=== PATIENT | female | born 1995 | race Hispanic/Latino ===

== ENCOUNTER 2017-08-10 19:53 | Emergency (ER) | payer MEDICAID, OTHER ==
[~2017-08-10 19:53] MED LIST: PREN1TAB80 PO
[2017-08-10 20:27] LABS: APPEARANCE,URINE Clear (CLEAR); BILIRUBIN,URINE Negative (NEGATIVE); COLOR,URINE Yellow (YELLOW); GLUCOSE, URINE (UA) Negative (NEGATIVE); KETONES,URINE Negative (NEGATIVE); LEUKOCYTE ESTERASE ,URINE Negative (NEGATIVE); NITRATE,URINE Negative (NEGATIVE); OCCULT BLOOD,URINE Negative (NEGATIVE); PH,URINE 8.5 (5.0-8.0); PROTEIN,URINE Negative (NEGATIVE)
[2017-08-10 20:30] LABS: HCG,QUAL RESULT NEGATIVE (NEGATIVE)
[2017-08-10] MEDS ORDERED: KETOROLAC TROMETHAMINE 30MG/ML ONE (20:51)
[2017-08-10] MEDS ORDERED: DEXAMETHASONE SOD PHOSPHATE 10MG/ML 1ML VIAL ONE (20:51)
== END 2017-08-10 21:17 | disposition home or self-care (01) ==
LOC: EDH 19:53
DX: J02.9 Acute pharyngitis, unspecified (principal); R51 Headache; M79.1 Myalgia; J45.909 Unspecified asthma, uncomplicated; Z91.013 Allergy to seafood
CPT/HCPCS: 81003; 81025; 87880; 96372 ×2; 99284; J1100; J1885

== ENCOUNTER 2018-09-17 21:21 | Emergency (ER) | payer OTHER ==
[2018-09-17] MEDS ORDERED: SODIUM CHLORIDE 0.9% 1000ML 1,000 ML IV ONE (23:32)
[2018-09-17] MEDS ORDERED: DEXAMETHASONE SOD PHOSPHATE 10MG/ML 1ML VIAL ONE (23:32)
[2018-09-17] MEDS ORDERED: DIPHENHYDRAMINE HCL 25 MG CAPSULE ONE (23:33)
[2018-09-17] MEDS ORDERED: PROCHLORPERAZINE EDISYLATE 10 MG/2 ML VIAL ONE (23:33)
[2018-09-17] MEDS ORDERED: DiphenhydrAMINE HCL 25 MG/10 ML ELIXIR UDCUP ONE (23:36)
[2018-09-17 23:42] LABS: BASOPHILS % (AUTO) 0.4 % (0.0-5.0); EOSINOPHILS % (AUTO) 1.5 % (0.0-8.0); HEMATOCRIT 33.7 % (36-48); LYMPHOCYTES % (AUTO) 33.8 % (21.0-51.0); MEAN CORPUSCULAR HEMOGLOBIN 23.4 pg (27.0-33.0); MEAN CORPUSCULAR HGB CONC 31.5 g/dL (32.0-36.0); MEAN CORPUSCULAR VOLUME 74.3 fL (79-99); MONOCYTES % (AUTO) 7.6 % (3.0-13.0); NEUTROPHILS % (AUTO) 56.7 % (40.0-77.0); PLATELET COUNT (AUTO) 242 K/uL (130-400); RED BLOOD CELL COUNT(AUTO) 4.53 MIL/uL (4.00-5.50); RED CELL DISTRIBUTION WIDTH 15.8 % (11.0-15.5); WHITE BLOOD COUNT (AUTO) 8.1 K/uL (4.8-10.8)
[2018-09-17 23:44] LABS: APPEARANCE,URINE Clear (CLEAR); BILIRUBIN,URINE Negative (NEGATIVE); COLOR,URINE Yellow (YELLOW); GLUCOSE, URINE (UA) Negative (NEGATIVE); KETONES,URINE Negative (NEGATIVE); LEUKOCYTE ESTERASE ,URINE Negative (NEGATIVE); NITRATE,URINE Negative (NEGATIVE); OCCULT BLOOD,URINE Negative (NEGATIVE); PROTEIN,URINE Negative (NEGATIVE); UROBILINOGEN,URINE 0.2 mg/dL (0.2-1.0)
[2018-09-17 23:45] LABS: HCG,QUAL RESULT NEGATIVE (NEGATIVE)
[2018-09-17 23:50] LABS: CREATININE 0.6 mg/dL (0.5-1.5); POTASSIUM 3.7 mmol/L (3.5-5.1)
[2018-09-17 23:57] LABS: ALBUMIN 4.1 g/dL (3.5-5.0); BILIRUBIN,TOTAL 0.3 mg/dL (0.2-1.0); TOTAL PROTEIN, SERUM 7.6 g/dL (6.0-8.3)
== END 2018-09-18 00:40 | disposition home or self-care (01) ==
LOC: EDH 21:21
DX: R51 Headache (principal); H57.13 Ocular pain, bilateral; R42 Dizziness and giddiness; J45.909 Unspecified asthma, uncomplicated; Z91.013 Allergy to seafood
CPT/HCPCS: 36415; 80053; 81003; 81025; 85025; 96361; 96374; 96375; 99284; J0780; J1100; J7030; Q0163

== ENCOUNTER 2018-12-24 13:11 | Emergency (ER) | payer SELFPAY ==
[2018-12-24] MEDS ORDERED: CYCLOBENZAPRINE HCL 10 MG TABLET ONE (13:41)
[2018-12-24] MEDS ORDERED: LIDOCAINE 5% TOPICAL PATCH TP ONE (13:41)
[2018-12-24] MEDS ORDERED: ACETAMINOPHEN EXTRA STRENGTH 500 MG TABLET ONE (13:41)
[2018-12-24 14:00] LABS: APPEARANCE,URINE Clear (CLEAR); BASOPHILS % (AUTO) 0.4 % (0.0-5.0); BILIRUBIN,URINE Negative (NEGATIVE); COLOR,URINE Yellow (YELLOW); EOSINOPHILS % (AUTO) 1.5 % (0.0-8.0); GLUCOSE, URINE (UA) Negative (NEGATIVE); HEMATOCRIT 37.5 % (36-48); KETONES,URINE Negative (NEGATIVE); LEUKOCYTE ESTERASE ,URINE Negative (NEGATIVE); LYMPHOCYTES % (AUTO) 33.9 % (21.0-51.0); MEAN CORPUSCULAR HEMOGLOBIN 26.2 pg (27.0-33.0); MEAN CORPUSCULAR HGB CONC 33.5 g/dL (32.0-36.0); MEAN CORPUSCULAR VOLUME 78.3 fL (79-99); MONOCYTES % (AUTO) 9.3 % (3.0-13.0); NEUTROPHILS % (AUTO) 54.9 % (40.0-77.0); NITRATE,URINE Negative (NEGATIVE); NUCLEATED RED BLOOD CELLS 0.1 % (0.0-0.19); OCCULT BLOOD,URINE Negative (NEGATIVE); PH,URINE 6.5 (5.0-8.0); PLATELET COUNT (AUTO) 220 K/uL (130-400); PROTEIN,URINE Negative (NEGATIVE); RED BLOOD CELL COUNT(AUTO) 4.79 MIL/uL (4.00-5.50); RED CELL DISTRIBUTION WIDTH 16.4 % (11.0-15.5); WHITE BLOOD COUNT (AUTO) 6.1 K/uL (4.8-10.8)
[2018-12-24 14:02] LABS: HCG,QUAL RESULT NEGATIVE (NEGATIVE)
[2018-12-24 14:11] LABS: CREATININE 0.7 mg/dL (0.5-1.5); POTASSIUM 3.4 mmol/L (3.5-5.1)
[2018-12-24 14:17] LABS: BILIRUBIN,TOTAL 0.5 mg/dL (0.2-1.0); TOTAL PROTEIN, SERUM 7.4 g/dL (6.0-8.3)
== END 2018-12-24 14:52 | disposition home or self-care (01) ==
LOC: EDH 13:11
DX: M62.838 Other muscle spasm (principal); M54.2 Cervicalgia; R55 Syncope and collapse; J45.909 Unspecified asthma, uncomplicated; G43.909 Migraine, unspecified, not intractable, without status migrainosus; Z91.013 Allergy to seafood
CPT/HCPCS: 36415; 80053; 81003; 81025; 85025; 93005

== ENCOUNTER 2019-05-20 23:31 | Observation (INO) | payer MEDICAID ==
[2019-05-20] MEDS ORDERED: LACTATED RINGERS 1000ML 1,000 ML IV PRN (23:44)
[2019-05-21 00:12] LABS: APPEARANCE,URINE Clear (CLEAR); BILIRUBIN,URINE Negative (NEGATIVE); COLOR,URINE Yellow (YELLOW); GLUCOSE, URINE (UA) Negative (NEGATIVE); KETONES,URINE Negative (NEGATIVE); LEUKOCYTE ESTERASE ,URINE Negative (NEGATIVE); NITRATE,URINE Negative (NEGATIVE); OCCULT BLOOD,URINE Negative (NEGATIVE); PROTEIN,URINE Negative (NEGATIVE); UROBILINOGEN,URINE 0.2 mg/dL (0.2-1.0)
[2019-05-21] MEDS ORDERED: ACETAMINOPHEN-CODEINE 300/30MG TAB PO STA (01:33)
[2019-05-21 02:29] LABS: AMPHET/METH SCREEN,URINE NEGATIVE (NEGATIVE); BARBITURATE SCREEN, URINE NEGATIVE (NEGATIVE); BENZODIAZEPINES SCREEN,URINE NEGATIVE (NEGATIVE); CANNABINOID SCREEN,URINE NEGATIVE (NEGATIVE); COCAINE SCREEN,URINE NEGATIVE (NEGATIVE); OPIATE SCREEN,URINE NEGATIVE (NEGATIVE); PHENCYCLIDINE SCREEN,URINE NEGATIVE (NEGATIVE)
== END 2019-05-21 01:00 | disposition home or self-care (01) ==
LOC: EDH 23:31 → LDH 23:52
PROVIDERS: ADMIT Obstetrics & Gynecology; ATTEND Obstetrics & Gynecology
DX: O99.89 Other specified diseases and conditions complicating pregnancy, childbirth and the puerperium (principal); M54.5 Low back pain; O99.512 Diseases of the respiratory system complicating pregnancy, second trimester; O99.353 Diseases of the nervous system complicating pregnancy, third trimester; J45.909 Unspecified asthma, uncomplicated; G43.909 Migraine, unspecified, not intractable, without status migrainosus; Z91.013 Allergy to seafood; Z3A.21 21 weeks gestation of pregnancy
CPT/HCPCS: 80305; 81003; 99284; G0378

== ENCOUNTER 2019-07-13 20:17 | Observation (INO) | payer MEDICAID ==
[~2019-07-13] VITALS: Ht 160 cm; Wt 59.0 kg
[2019-07-13 20:37] VITALS: BP 117/61
[2019-07-13 21:18] LABS: APPEARANCE,URINE Clear (CLEAR); BILIRUBIN,URINE Negative (NEGATIVE); COLOR,URINE Yellow (YELLOW); GLUCOSE, URINE (UA) Negative (NEGATIVE); KETONES,URINE Negative (NEGATIVE); LEUKOCYTE ESTERASE ,URINE Negative (NEGATIVE); NITRATE,URINE Negative (NEGATIVE); OCCULT BLOOD,URINE Negative (NEGATIVE); PH,URINE 7.5 (5.0-8.0); PROTEIN,URINE Negative (NEGATIVE)
[2019-07-13 21:27] LABS: AMPHET/METH SCREEN,URINE NEGATIVE (NEGATIVE); BARBITURATE SCREEN, URINE NEGATIVE (NEGATIVE); BENZODIAZEPINES SCREEN,URINE NEGATIVE (NEGATIVE); CANNABINOID SCREEN,URINE NEGATIVE (NEGATIVE); COCAINE SCREEN,URINE NEGATIVE (NEGATIVE); OPIATE SCREEN,URINE NEGATIVE (NEGATIVE); PHENCYCLIDINE SCREEN,URINE NEGATIVE (NEGATIVE)
== END 2019-07-13 22:05 | disposition home or self-care (01) ==
LOC: EDH 20:17 → LDH 20:18
PROVIDERS: ADMIT Obstetrics & Gynecology; ATTEND Obstetrics & Gynecology
DX: O26.893 Other specified pregnancy related conditions, third trimester (principal); O99.513 Diseases of the respiratory system complicating pregnancy, third trimester; J45.909 Unspecified asthma, uncomplicated; G43.909 Migraine, unspecified, not intractable, without status migrainosus; R10.2 Pelvic and perineal pain; Z88.5 Allergy status to narcotic agent; Z91.013 Allergy to seafood; Z3A.29 29 weeks gestation of pregnancy
CPT/HCPCS: 80305; 81003; 99284; G0378 ×2

== ENCOUNTER 2020-05-03 06:05 | Day surgery (SDC) | payer MEDICAID ==
[2020-04-30 13:49] LABS: BASOPHILS % (AUTO) 0.8 % (0.0-5.0); EOSINOPHILS % (AUTO) 3.2 % (0.0-8.0); HEMATOCRIT 38.9 % (36-48); LYMPHOCYTES % (AUTO) 36.9 % (21.0-51.0); MEAN CORPUSCULAR HEMOGLOBIN 25.8 pg (27.0-33.0); MEAN CORPUSCULAR HGB CONC 31.6 g/dL (32.0-36.0); MEAN CORPUSCULAR VOLUME 81.6 fL (79-99); MONOCYTES % (AUTO) 7.6 % (3.0-13.0); NEUTROPHILS % (AUTO) 51.3 % (40.0-77.0); PLATELET COUNT (AUTO) 240 K/uL (130-400); RED BLOOD CELL COUNT(AUTO) 4.77 MIL/uL (4.00-5.50); RED CELL DISTRIBUTION WIDTH 14.5 % (11.0-15.5)
[2020-05-02 09:45] VITALS: BP 119/64
[2020-05-03] VITALS (17 sets, daily range): BP systolic 103–126; BP diastolic 49–79
[~2020-05-03] VITALS: Ht 162.6 cm; Wt 53.3 kg
[~2020-05-03 06:05] MED LIST changes: +CEFAZOLIN SODIUM 1 GM VIAL IVP SCH; -PREN1TAB80 PO
[2020-05-03] MEDS ORDERED: LACTATED RINGERS 1000ML 1,000 ML IV ONE (06:27)
[2020-05-03] MEDS ORDERED: BUPIVACAINE/PF 0.25% 30ML VIAL IJ ONE (06:52)
[2020-05-03] MEDS ORDERED: SUCCINYLCHOLINE CHLORIDE 20 MG/ML 10 ML VIAL ONE ×2 (07:24→07:25)
[2020-05-03] MEDS ORDERED: PROPOFOL 10 MG/ML 20ML VIAL IV ONE (07:24)
[2020-05-03] MEDS ORDERED: DEXAMETHASONE SOD PHOSPHATE 10MG/ML 1ML VIAL ONE (07:24)
[2020-05-03] MEDS ORDERED: NEOSTIGMINE 5MG/5ML SYR IV ONE (07:24)
[2020-05-03] MEDS ORDERED: ROCURONIUM 10MG/1ML SYR 10 MG/ML ML ONE (07:24)
[2020-05-03] MEDS ORDERED: LIDOCAINE PF 2% 5ML ABBOJECT ONE (07:24)
[2020-05-03] MEDS ORDERED: ONDANSETRON HCL 4 MG/2 ML VIAL ONE (07:24)
[2020-05-03] MEDS ORDERED: MIDAZOLAM HCL 1 MG/ML 2ML VIAL ONE (07:24)
[2020-05-03] MEDS ORDERED: GLYCOPYRROLATE 1 MG/5 ML SYRINGE ONE (07:24)
[2020-05-03] MEDS ORDERED: FENTANYL CITRATE PF 50 MCG/1 ML 2ML VIAL ONE (07:25)
[2020-05-03] MEDS ORDERED: MEPERIDINE-PF 25 MG/ML SYG ONE ×2 (10:20→10:29)
== END 2020-05-03 11:35 | disposition home or self-care (01) ==
LOC: DAH 06:05
PROVIDERS: ATTEND Obstetrics & Gynecology
DX: Z30.2 Encounter for sterilization (principal); Z64.1 Problems related to multiparity; J45.909 Unspecified asthma, uncomplicated; Z20.828 Contact with and (suspected) exposure to other viral communicable diseases
CPT/HCPCS: 36415 ×2; 58671; 84703; 85025; 86850 ×2; 86900 ×2; 86901 ×2; A4215 ×2; A4221; A4222; A4223; A4264; A4351; A4606; A4649; A4663; A4930; A6260; C1769 ×3; C9803; G0168; J0330 ×2; J0690; J1100; J2001; J2175 ×2; J2250; J2405; J2704; J2710; J3010; J3490 ×2; J7120; U0003

== ENCOUNTER 2020-10-20 13:58 | Emergency (ER) | payer MEDICAID ==
[2020-10-20] MEDS ORDERED: IBUPROFEN 600 MG TABLET ONE (14:24)
[2020-10-20] MEDS ORDERED: ACETAMINOPHEN EXTRA STRENGTH 500 MG TABLET ONE (14:24)
[2020-10-20] MEDS ORDERED: SODIUM CHLORIDE 0.9% 1000ML 1,000 ML IV ONE (14:25)
[2020-10-20 14:27] LABS: BILIRUBIN,URINE Negative (NEGATIVE); COLOR,URINE Yellow (YELLOW); GLUCOSE, URINE (UA) Negative (NEGATIVE); KETONES,URINE Trace mg/dL (NEGATIVE); LEUKOCYTE ESTERASE ,URINE Large (NEGATIVE); NITRATE,URINE Negative (NEGATIVE); OCCULT BLOOD,URINE Small (NEGATIVE); PROTEIN,URINE Trace mg/dL (NEGATIVE)
[2020-10-20 14:28] LABS: APPEARANCE,URINE CLOUDY (CLEAR)
[2020-10-20 14:30] LABS: HCG,QUAL RESULT NEGATIVE (NEGATIVE)
[2020-10-20 14:49] LABS: BASOPHILS % (AUTO) 0.3 % (0.0-5.0); EOSINOPHILS % (AUTO) 0.2 % (0.0-8.0); HEMATOCRIT 37.2 % (36-48); MEAN CORPUSCULAR HEMOGLOBIN 27.2 pg (27.0-33.0); MEAN CORPUSCULAR HGB CONC 33.6 g/dL (32.0-36.0); MONOCYTES % (AUTO) 11.9 % (3.0-13.0); NEUTROPHILS % (AUTO) 81.2 % (40.0-77.0); PLATELET COUNT (AUTO) 159 K/uL (130-400); RED BLOOD CELL COUNT(AUTO) 4.59 MIL/uL (4.00-5.50); RED CELL DISTRIBUTION WIDTH 13.8 % (11.0-15.5); WHITE BLOOD COUNT (AUTO) 11.3 K/uL (4.8-10.8)
[2020-10-20 14:52] LABS: BACTERIA,URINE Rare /HPF (None Seen); RBC,URINE 0-1 /HPF (0-1); SQUAMOUS EPITHELIAL CELL,UR Rare /HPF (0-2)
[2020-10-20 15:01] LABS: CREATININE 0.9 mg/dL (0.5-1.5); POTASSIUM 3.1 mmol/L (3.5-5.1)
[2020-10-20 15:06] LABS: ALBUMIN 3.5 g/dL (3.5-5.0); BILIRUBIN,TOTAL 1.2 mg/dL (0.2-1.0); TOTAL PROTEIN, SERUM 7.4 g/dL (6.0-8.3)
[2020-10-20 15:11] LABS: RAPID GROUP A STREP NEGATIVE (NEGATIVE)
[2020-10-20] MEDS ORDERED: CEFTRIAXONE SODIUM 1 GM ONE (15:15)
[2020-10-20] MEDS ORDERED: POTASSIUM BICARB/CIT AC 25 MEQ TABLET.EFF ONE (15:15)
== END 2020-10-20 15:52 | disposition home or self-care (01) ==
LOC: EDH 13:58
DX: N30.90 Cystitis, unspecified without hematuria (principal); J45.909 Unspecified asthma, uncomplicated; G43.909 Migraine, unspecified, not intractable, without status migrainosus; Z91.013 Allergy to seafood; Z88.6 Allergy status to analgesic agent
CPT/HCPCS: 36415; 71045; 80053; 81001; 81025; 85025; 87077; 87088; 87186; 87804 ×2; 87880; 96365; 99284; J0696; J7030

== ENCOUNTER 2022-09-19 08:40 | Emergency (ER) | payer MEDICAID ==
[~2022-09-19] VITALS: Ht 160 cm; Wt 59.0 kg
[2022-09-19] MEDS ORDERED: 0.9%NACL 1000ML 1,000 ML IV ONE (09:00)
[2022-09-19 09:11] LABS: BASOPHILS % (AUTO) 0.5 % (0.0-5.0); EOSINOPHILS % (AUTO) 2.5 % (0.0-8.0); HEMATOCRIT 40.2 % (36-48); MEAN CORPUSCULAR HEMOGLOBIN 31.1 pg (27.0-33.0); MEAN CORPUSCULAR HGB CONC 36.3 g/dL (32.0-36.0); MEAN CORPUSCULAR VOLUME 85.5 fL (79-99); MONOCYTES % (AUTO) 9.5 % (3.0-13.0); NEUTROPHILS % (AUTO) 66.2 % (40.0-77.0); PLATELET COUNT (AUTO) 202 K/uL (130-400); RED CELL DISTRIBUTION WIDTH 12.9 % (11.0-15.5)
[2022-09-19 09:26] LABS: CREATININE 0.8 mg/dL (0.5-1.5); POTASSIUM 3.5 mmol/L (3.5-5.1)
[2022-09-19 09:37] LABS: APPEARANCE,URINE CLEAR (CLEAR); BILIRUBIN,URINE NEGATIVE (NEGATIVE); COLOR,URINE COLORLESS (YELLOW); GLUCOSE, URINE (UA) NEGATIVE (NEGATIVE); KETONES,URINE NEGATIVE (NEGATIVE); LEUKOCYTE ESTERASE ,URINE NEGATIVE Leu/uL (NEGATIVE); NITRATE,URINE NEGATIVE (NEGATIVE); OCCULT BLOOD,URINE MODERATE (NEGATIVE); PROTEIN,URINE NEGATIVE (NEGATIVE); UROBILINOGEN,URINE 0.2 mg/dL (0.2-1.0)
[2022-09-19 09:37] LABS: ALBUMIN 4.3 g/dL (3.5-5.0); TOTAL PROTEIN, SERUM 7.8 g/dL (6.0-8.3)
[2022-09-19 09:38] LABS: RBC,URINE 0-1 /HPF (0-1); SQUAMOUS EPITHELIAL CELL,UR RARE /HPF (0-2); WBC,URINE 0-1 /HPF (0-1)
[2022-09-19 09:42] LABS: HCG,QUALITATIVE URINE NEGATIVE (NEGATIVE)
[2022-09-19 10:23] VITALS: BP 117/63
== END 2022-09-19 10:31 | disposition home or self-care (01) ==
LOC: EDH 08:40
DX: N93.9 Abnormal uterine and vaginal bleeding, unspecified (principal); Z98.890 Other specified postprocedural states; Z88.5 Allergy status to narcotic agent
CPT/HCPCS: 36415; 76801; 80053; 81001; 81025; 84702; 85025

== ENCOUNTER 2025-05-05 08:08 | Emergency (ER) | payer BC, MEDICAID ==
[~2025-05-05] VITALS: Ht 160 cm; Wt 59.9 kg
[2025-05-05 08:10] VITALS: BP 103/64; PULSE 84; RESP 18; TEMP 98.1
== END 2025-05-05 08:29 | disposition left against medical advice (07) ==
LOC: EDH 08:08
DX: L50.9 Urticaria, unspecified (principal); Z53.21 Procedure and treatment not carried out due to patient leaving prior to being seen by health care provider
CPT/HCPCS: 99281